=== PATIENT | female | born 1950 | race Caucasian/White ===

== ENCOUNTER 2016-08-28 14:17 | Inpatient (IN) | payer MEDICARE ==
[~2016-08-28] VITALS: Ht 167.6 cm; Wt 70.6 kg
[2016-08-28] MEDS ORDERED: DUONEB INH ONE (16:38)
[2016-08-28] MEDS ORDERED: METHYLPRED SOD SUCC 125 MG/2 ML VIAL ONE (16:59)
[2016-08-28] MEDS ORDERED: NEB-ALBUTEROL 2.5 MG/3 ML INH PRN (20:30)
[2016-08-28] MEDS ORDERED: LINZESS 145 MCG CAPSULE PO PRN (20:40)
[2016-08-28] MEDS ORDERED: clonazePAM 0.5 MG TAB PO PRN (20:40)
[2016-08-28] MEDS ORDERED: SALINE FLUSH 10 ML FLUSH PRN (20:45)
[2016-08-28 23:00] VITALS: BP_SYST 164; BP_SYST 175; RESP 18; TEMP 97.6; Ht 167.6 cm; Wt 70.6 kg
[2016-08-28] MEDS: DUONEB INH SCH ×2 (23:00→23:09)
[2016-08-28] MEDS: NEB-BROVANA 15 MCG/2 ML INH SCH (23:09)
[2016-08-28] MEDS: NEB-BUDESONIDE 0.5 MG INH SCH (23:10)
[2016-08-28 23:17] VITALS: RESP 20
[2016-08-29] VITALS (8 sets, daily range): BP systolic 100–130; RESP 17–20; TEMP 98–99.4
[2016-08-29] MEDS: LEVOFLOXACIN 750 MG/150 ML 150 ML IV SCH ×2 (00:27→09:11)
[2016-08-29] MEDS: SODIUM CHLORIDE 0.9% FLUSH BAG 500 ML IV SCH (00:27)
[2016-08-29] MEDS: DOCUSATE SOD 100 MG CAP PO SCH ×3 (00:28→20:17)
[2016-08-29] MEDS: ARTIF TEARS OP SOLN 0.4ML EYE LT SCH ×3 (00:28→20:17)
[2016-08-29] MEDS: KCL CR 20 MEQ TAB PO SCH ×3 (00:29→20:17)
[2016-08-29] MEDS: AMITRIPTYLINE 25 MG TAB PO SCH ×2 (00:29→20:17)
[2016-08-29] MEDS: PRAMIPEXOLE 0.5 MG TAB PO SCH ×2 (00:30→20:17)
[2016-08-29] MEDS: GUAIFENESIN ER 600 MG TABCR PO SCH ×3 (00:31→20:16)
[2016-08-29] MEDS: TOPIRAMATE 100 MG TAB PO SCH ×3 (00:32→20:17)
[2016-08-29] MEDS: PANTOPRAZOLE 40 MG TAB PO SCH ×3 (00:32→20:17)
[2016-08-29] MEDS: METHYLPRED SOD SUCC 40 MG VIAL IV SCH ×4 (00:33→23:20)
[2016-08-29] MEDS: clonazePAM 0.5 MG TAB PO PRN (00:56)
[2016-08-29] MEDS: NEB-BROVANA 15 MCG/2 ML INH SCH ×2 (06:44→19:29)
[2016-08-29] MEDS: DUONEB INH SCH ×5 (06:44→22:58)
[2016-08-29] MEDS: NEB-BUDESONIDE 0.5 MG INH SCH ×2 (06:44→19:29)
[2016-08-29] MEDS: LEVOTHYROXINE 0.175 MG TAB PO SCH (06:49)
[2016-08-29] MEDS ORDERED: Furosemide 40 MG TAB PO SCH (09:00)
[2016-08-29] MEDS: SALINE FLUSH 10 ML FLUSH SCH ×2 (09:07→20:18)
[2016-08-29] MEDS: METOPROLOL TART 25 MG TAB PO SCH (09:08)
[2016-08-29] MEDS: CHOLECALCIFEROL 1,000 UNITS TAB PO SCH (09:09)
[2016-08-30 03:01] VITALS: BP_SYST 128; RESP 16; TEMP 98.5
[2016-08-30] MEDS: SODIUM CHLORIDE 0.9% FLUSH BAG 500 ML IV SCH (05:57)
[2016-08-30] MEDS: LEVOTHYROXINE 0.175 MG TAB PO SCH (05:58)
[2016-08-30] MEDS: PANTOPRAZOLE 40 MG TAB PO SCH ×2 (05:58→20:10)
[2016-08-30 07:36] VITALS: BP_SYST 126; RESP 16; TEMP 98.4
[2016-08-30] MEDS: NEB-BROVANA 15 MCG/2 ML INH SCH ×2 (07:46→18:35)
[2016-08-30] MEDS: DUONEB INH SCH ×5 (07:47→22:50)
[2016-08-30] MEDS: NEB-BUDESONIDE 0.5 MG INH SCH ×2 (07:47→18:36)
[2016-08-30] MEDS ORDERED: SODIUM CHLORIDE 0.9% 1,000 ML IV SCH (08:10)
[2016-08-30] MEDS: METHYLPRED SOD SUCC 40 MG VIAL IV SCH ×3 (08:52→23:24)
[2016-08-30] MEDS: LEVOFLOXACIN 750 MG/150 ML 150 ML IV SCH (08:53)
[2016-08-30] MEDS: SALINE FLUSH 10 ML FLUSH SCH ×2 (08:53→20:08)
[2016-08-30] MEDS: ARTIF TEARS OP SOLN 0.4ML EYE LT SCH ×2 (08:53→20:09)
[2016-08-30] MEDS: DOCUSATE SOD 100 MG CAP PO SCH ×2 (08:54→20:10)
[2016-08-30] MEDS: METOPROLOL TART 25 MG TAB PO SCH (08:54)
[2016-08-30] MEDS: CHOLECALCIFEROL 1,000 UNITS TAB PO SCH (08:54)
[2016-08-30] MEDS: KCL CR 20 MEQ TAB PO SCH ×2 (08:54→20:10)
[2016-08-30] MEDS: TOPIRAMATE 100 MG TAB PO SCH ×2 (08:54→20:10)
[2016-08-30] MEDS: GUAIFENESIN ER 600 MG TABCR PO SCH ×2 (08:54→20:11)
[2016-08-30 11:19] VITALS: BP_SYST 124; RESP 16; TEMP 98.5
[2016-08-30 15:53] VITALS: BP_SYST 126; RESP 16; TEMP 98.5
[2016-08-30 19:19] VITALS: BP_SYST 133; RESP 16; TEMP 98.3
[2016-08-30] MEDS: AMITRIPTYLINE 25 MG TAB PO SCH (20:10)
[2016-08-30] MEDS: PRAMIPEXOLE 0.5 MG TAB PO SCH (20:10)
[2016-08-30] MEDS: clonazePAM 0.5 MG TAB PO PRN (20:16)
[2016-08-30] MEDS ORDERED: MISSING DOSE XX ONE (22:30)
[2016-08-30 22:38] VITALS: BP_SYST 134; RESP 20; TEMP 98.3
[2016-08-30] MEDS: TRAZODONE 50 MG TAB PO SCH (23:23)
[2016-08-31] VITALS (7 sets, daily range): BP systolic 121–144; RESP 18–19; TEMP 98–98.7
[2016-08-31] MEDS: NEB-BROVANA 15 MCG/2 ML INH SCH ×2 (05:13→17:57)
[2016-08-31] MEDS: NEB-BUDESONIDE 0.5 MG INH SCH ×2 (05:13→17:57)
[2016-08-31] MEDS: DUONEB INH SCH ×5 (05:13→23:05)
[2016-08-31] MEDS: SODIUM CHLORIDE 0.9% FLUSH BAG 500 ML IV SCH (05:52)
[2016-08-31] MEDS ORDERED: MISSING DOSE XX ONE ×2 (05:55→09:15)
[2016-08-31] MEDS: LEVOTHYROXINE 0.175 MG TAB PO SCH (07:08)
[2016-08-31] MEDS: SALINE FLUSH 10 ML FLUSH SCH ×2 (08:00→20:32)
[2016-08-31] MEDS: ARTIF TEARS OP SOLN 0.4ML EYE LT SCH ×2 (09:02→20:33)
[2016-08-31] MEDS: PANTOPRAZOLE 40 MG TAB PO SCH ×2 (09:03→20:37)
[2016-08-31] MEDS: METOPROLOL TART 25 MG TAB PO SCH (09:03)
[2016-08-31] MEDS: TOPIRAMATE 100 MG TAB PO SCH ×2 (09:03→20:37)
[2016-08-31] MEDS: CHOLECALCIFEROL 1,000 UNITS TAB PO SCH (09:03)
[2016-08-31] MEDS: KCL CR 20 MEQ TAB PO SCH ×2 (09:03→20:33)
[2016-08-31] MEDS: GUAIFENESIN ER 600 MG TABCR PO SCH ×2 (09:03→20:33)
[2016-08-31] MEDS: METHYLPRED SOD SUCC 40 MG VIAL IV SCH (09:03)
[2016-08-31] MEDS: LEVOFLOXACIN 750 MG/150 ML 150 ML IV SCH (09:06)
[2016-08-31] MEDS: DOCUSATE SOD 100 MG CAP PO SCH ×2 (11:05→20:33)
[2016-08-31] MEDS ORDERED: METHYLPRED SOD SUCC 40 MG VIAL IV SCH (16:00)
[2016-08-31] MEDS: AMITRIPTYLINE 25 MG TAB PO SCH (20:33)
[2016-08-31] MEDS: TRAZODONE 50 MG TAB PO SCH (20:33)
[2016-08-31] MEDS: PRAMIPEXOLE 0.5 MG TAB PO SCH (20:33)
[2016-08-31] MEDS: clonazePAM 0.5 MG TAB PO PRN (22:56)
[2016-09-01] VITALS (8 sets, daily range): BP systolic 96–137; RESP 10–18; TEMP 97.8–98.8
[2016-09-01] MEDS: NEB-BUDESONIDE 0.5 MG INH SCH ×2 (05:07→17:11)
[2016-09-01] MEDS: DUONEB INH SCH ×5 (05:07→23:10)
[2016-09-01] MEDS: NEB-BROVANA 15 MCG/2 ML INH SCH ×2 (05:07→17:11)
[2016-09-01] MEDS: LEVOTHYROXINE 0.175 MG TAB PO SCH (06:14)
[2016-09-01] MEDS: SODIUM CHLORIDE 0.9% FLUSH BAG 500 ML IV SCH (06:14)
[2016-09-01] MEDS: LEVOFLOXACIN 750 MG/150 ML 150 ML IV SCH (09:00)
[2016-09-01] MEDS ORDERED: PREDNISONE 20 MG TAB PO SCH (09:00)
[2016-09-01] MEDS: PANTOPRAZOLE 40 MG TAB PO SCH ×2 (09:25→20:24)
[2016-09-01] MEDS: CHOLECALCIFEROL 1,000 UNITS TAB PO SCH (09:25)
[2016-09-01] MEDS: METOPROLOL TART 25 MG TAB PO SCH (09:25)
[2016-09-01] MEDS: TOPIRAMATE 100 MG TAB PO SCH ×2 (09:25→20:24)
[2016-09-01] MEDS: GUAIFENESIN ER 600 MG TABCR PO SCH ×2 (09:25→20:24)
[2016-09-01] MEDS: DOCUSATE SOD 100 MG CAP PO SCH ×2 (09:26→20:24)
[2016-09-01] MEDS: SALINE FLUSH 10 ML FLUSH SCH ×2 (09:26→20:23)
[2016-09-01] MEDS: KCL CR 20 MEQ TAB PO SCH ×2 (09:26→20:24)
[2016-09-01] MEDS: ARTIF TEARS OP SOLN 0.4ML EYE LT SCH ×2 (09:26→20:23)
[2016-09-01] MEDS ORDERED: MISSING DOSE XX ONE (09:30)
[2016-09-01] MEDS: LEVOFLOXACIN 750 MG TAB PO SCH (09:36)
[2016-09-01] MEDS: AMITRIPTYLINE 25 MG TAB PO SCH (20:24)
[2016-09-01] MEDS: clonazePAM 0.5 MG TAB PO PRN (20:24)
[2016-09-01] MEDS: TRAZODONE 50 MG TAB PO SCH (20:24)
[2016-09-01] MEDS: PRAMIPEXOLE 0.5 MG TAB PO SCH (20:24)
[2016-09-02] VITALS (9 sets, daily range): BP systolic 106–133; RESP 14–20; TEMP 97.4–98.8
[2016-09-02] MEDS: SODIUM CHLORIDE 0.9% FLUSH BAG 500 ML IV SCH (05:47)
[2016-09-02] MEDS: NEB-BROVANA 15 MCG/2 ML INH SCH ×2 (06:08→19:47)
[2016-09-02] MEDS: NEB-BUDESONIDE 0.5 MG INH SCH ×2 (06:08→19:47)
[2016-09-02] MEDS: DUONEB INH SCH ×5 (06:08→23:02)
[2016-09-02] MEDS: LEVOTHYROXINE 0.175 MG TAB PO SCH (06:28)
[2016-09-02] MEDS: ARTIF TEARS OP SOLN 0.4ML EYE LT SCH ×2 (08:40→21:52)
[2016-09-02] MEDS: GUAIFENESIN ER 600 MG TABCR PO SCH ×2 (08:40→21:52)
[2016-09-02] MEDS: CHOLECALCIFEROL 1,000 UNITS TAB PO SCH (08:40)
[2016-09-02] MEDS: METOPROLOL TART 25 MG TAB PO SCH (08:40)
[2016-09-02] MEDS: PREDNISONE 20 MG TAB PO SCH (08:40)
[2016-09-02] MEDS: TOPIRAMATE 100 MG TAB PO SCH ×2 (08:40→21:52)
[2016-09-02] MEDS: DOCUSATE SOD 100 MG CAP PO SCH ×2 (08:40→21:53)
[2016-09-02] MEDS: KCL CR 20 MEQ TAB PO SCH ×2 (08:40→21:53)
[2016-09-02] MEDS: PANTOPRAZOLE 40 MG TAB PO SCH ×2 (08:40→21:52)
[2016-09-02] MEDS: LEVOFLOXACIN 750 MG TAB PO SCH (08:40)
[2016-09-02] MEDS: SALINE FLUSH 10 ML FLUSH SCH ×2 (08:41→21:53)
[2016-09-02] MEDS: PRAMIPEXOLE 0.5 MG TAB PO SCH (21:51)
[2016-09-02] MEDS: AMITRIPTYLINE 25 MG TAB PO SCH (21:52)
[2016-09-02] MEDS: TRAZODONE 50 MG TAB PO SCH (21:53)
[2016-09-02] MEDS: clonazePAM 0.5 MG TAB PO PRN (22:09)
[2016-09-03] MEDS: CYCLOBENZAPRINE 10 MG TAB PO PRN (00:26)
[2016-09-03 03:09] VITALS: BP_SYST 100; RESP 20; TEMP 97.7
[2016-09-03] MEDS: SODIUM CHLORIDE 0.9% FLUSH BAG 500 ML IV SCH (06:08)
[2016-09-03] MEDS: LEVOTHYROXINE 0.175 MG TAB PO SCH (06:09)
[2016-09-03 07:04] VITALS: BP_SYST 166; RESP 16; TEMP 97.1
[2016-09-03] MEDS: NEB-BUDESONIDE 0.5 MG INH SCH ×2 (07:51→20:05)
[2016-09-03] MEDS: DUONEB INH SCH ×5 (07:51→23:24)
[2016-09-03] MEDS: NEB-BROVANA 15 MCG/2 ML INH SCH ×2 (07:51→20:05)
[2016-09-03] MEDS: SALINE FLUSH 10 ML FLUSH SCH ×2 (09:42→20:21)
[2016-09-03] MEDS: TOPIRAMATE 100 MG TAB PO SCH ×2 (09:43→22:45)
[2016-09-03] MEDS: GUAIFENESIN ER 600 MG TABCR PO SCH ×2 (09:43→22:47)
[2016-09-03] MEDS: LEVOFLOXACIN 750 MG TAB PO SCH (09:44)
[2016-09-03] MEDS: ARTIF TEARS OP SOLN 0.4ML EYE LT SCH ×2 (09:44→22:45)
[2016-09-03] MEDS: PANTOPRAZOLE 40 MG TAB PO SCH ×2 (09:44→22:46)
[2016-09-03] MEDS: KCL CR 20 MEQ TAB PO SCH ×2 (09:44→22:46)
[2016-09-03] MEDS: METOPROLOL TART 25 MG TAB PO SCH (09:44)
[2016-09-03] MEDS: DOCUSATE SOD 100 MG CAP PO SCH ×2 (09:44→22:46)
[2016-09-03] MEDS: CHOLECALCIFEROL 1,000 UNITS TAB PO SCH (09:44)
[2016-09-03] MEDS ORDERED: MISSING DOSE XX ONE ×2 (10:00)
[2016-09-03 11:27] VITALS: BP_SYST 124; RESP 16; TEMP 98.2
[2016-09-03] MEDS: PREDNISONE 20 MG TAB PO SCH (12:24)
[2016-09-03 15:48] VITALS: BP_SYST 140; RESP 16; TEMP 98.9
[2016-09-03] MEDS ORDERED: ARTIF TEARS OP SOLN 0.4ML EYE LT PRN (17:40)
[2016-09-03 19:48] VITALS: BP_SYST 151; RESP 20; TEMP 99.7
[2016-09-03] MEDS ORDERED: ZOLPIDEM 5 MG TAB PO SCH (21:00)
[2016-09-03] MEDS ORDERED: TRAZODONE 50 MG TAB PO SCH (21:00)
[2016-09-03] MEDS: AMITRIPTYLINE 25 MG TAB PO SCH (22:46)
[2016-09-03] MEDS: PRAMIPEXOLE 0.5 MG TAB PO SCH (22:46)
[2016-09-04] VITALS (8 sets, daily range): BP systolic 117–169; RESP 18–22; TEMP 97.6–99
[2016-09-04] MEDS: clonazePAM 0.5 MG TAB PO PRN ×2 (03:36→23:31)
[2016-09-04] MEDS: SODIUM CHLORIDE 0.9% FLUSH BAG 500 ML IV SCH (06:00)
[2016-09-04] MEDS: LEVOTHYROXINE 0.175 MG TAB PO SCH (06:38)
[2016-09-04] MEDS: NEB-BROVANA 15 MCG/2 ML INH SCH ×2 (07:58→20:12)
[2016-09-04] MEDS: DUONEB INH SCH ×5 (07:58→22:55)
[2016-09-04] MEDS: NEB-BUDESONIDE 0.5 MG INH SCH ×2 (07:58→20:12)
[2016-09-04] MEDS: SALINE FLUSH 10 ML FLUSH SCH ×2 (10:01→20:40)
[2016-09-04] MEDS: ARTIF TEARS OP SOLN 0.4ML EYE LT SCH ×2 (10:01→20:39)
[2016-09-04] MEDS: DOCUSATE SOD 100 MG CAP PO SCH ×2 (10:02→20:37)
[2016-09-04] MEDS: METOPROLOL TART 25 MG TAB PO SCH (10:02)
[2016-09-04] MEDS: GUAIFENESIN ER 600 MG TABCR PO SCH ×2 (10:02→20:41)
[2016-09-04] MEDS: CHOLECALCIFEROL 1,000 UNITS TAB PO SCH (10:02)
[2016-09-04] MEDS: TOPIRAMATE 100 MG TAB PO SCH ×2 (10:02→20:37)
[2016-09-04] MEDS: PREDNISONE 20 MG TAB PO SCH (10:03)
[2016-09-04] MEDS: LEVOFLOXACIN 750 MG TAB PO SCH (10:03)
[2016-09-04] MEDS: KCL CR 20 MEQ TAB PO SCH ×2 (10:03→20:39)
[2016-09-04] MEDS: PANTOPRAZOLE 40 MG TAB PO SCH ×2 (10:04→20:38)
[2016-09-04] MEDS: PRAMIPEXOLE 0.5 MG TAB PO SCH (20:38)
[2016-09-04] MEDS: NYSTATIN 500,000 UNITS/5 ML SUSP SWISH.SWAL SCH (20:38)
[2016-09-04] MEDS: AMITRIPTYLINE 25 MG TAB PO SCH (20:40)
[2016-09-04] MEDS ORDERED: TRAZODONE 100 MG TAB PO SCH (21:00)
[2016-09-04] MEDS ORDERED: MISSING DOSE XX ONE (23:10)
[2016-09-04] MEDS: CYCLOBENZAPRINE 10 MG TAB PO PRN (23:31)
[2016-09-05 00:10] VITALS: RESP 14
[2016-09-05 03:43] VITALS: BP_SYST 157; RESP 16; TEMP 97.5
[2016-09-05] MEDS: SODIUM CHLORIDE 0.9% FLUSH BAG 500 ML IV SCH (06:00)
[2016-09-05] MEDS: LEVOTHYROXINE 0.175 MG TAB PO SCH (06:29)
[2016-09-05] MEDS ORDERED: MISSING DOSE XX ONE (07:40)
[2016-09-05 07:55] VITALS: BP_SYST 182; RESP 20; TEMP 97.9
[2016-09-05] MEDS: DUONEB INH SCH ×3 (08:08→14:48)
[2016-09-05] MEDS: NEB-BUDESONIDE 0.5 MG INH SCH (08:08)
[2016-09-05] MEDS: NEB-BROVANA 15 MCG/2 ML INH SCH (08:08)
[2016-09-05] MEDS: GUAIFENESIN ER 600 MG TABCR PO SCH (08:36)
[2016-09-05] MEDS: PANTOPRAZOLE 40 MG TAB PO SCH (08:36)
[2016-09-05] MEDS: TOPIRAMATE 100 MG TAB PO SCH (08:36)
[2016-09-05] MEDS: LEVOFLOXACIN 750 MG TAB PO SCH (08:37)
[2016-09-05] MEDS: DOCUSATE SOD 100 MG CAP PO SCH (08:37)
[2016-09-05] MEDS: CHOLECALCIFEROL 1,000 UNITS TAB PO SCH (08:37)
[2016-09-05] MEDS: METOPROLOL TART 25 MG TAB PO SCH (08:37)
[2016-09-05] MEDS: KCL CR 20 MEQ TAB PO SCH (08:37)
[2016-09-05] MEDS: PREDNISONE 20 MG TAB PO SCH (08:38)
[2016-09-05] MEDS: NYSTATIN 500,000 UNITS/5 ML SUSP SWISH.SWAL SCH ×3 (08:39→17:51)
[2016-09-05] MEDS: ARTIF TEARS OP SOLN 0.4ML EYE LT SCH (08:39)
[2016-09-05] MEDS: SALINE FLUSH 10 ML FLUSH SCH (08:39)
[2016-09-05 12:23] VITALS: BP_SYST 113; RESP 18; TEMP 97.4
[2016-09-05 15:41] VITALS: BP_SYST 104; RESP 18; TEMP 98.2
[2016-09-05 17:39] VITALS: BP_SYST 104; RESP 18; TEMP 98.2
== END 2016-09-05 18:29 | disposition home or self-care (01) | DRG 189 ==
LOC: ENRESERV → ENRESERVDT → ENRESERVTM → ER 14:17 → ENPENDDIS 20:29 → EMR 20:29 → PCU2 22:39 → 4NT 09-02 15:23
PROVIDERS: ADMIT Internal Medicine; ATTEND Internal Medicine
DX: J96.21 Acute and chronic respiratory failure with hypoxia (principal); I42.9 Cardiomyopathy, unspecified; E87.1 Hypo-osmolality and hyponatremia; J98.11 Atelectasis; J44.1 Chronic obstructive pulmonary disease with (acute) exacerbation; J96.22 Acute and chronic respiratory failure with hypercapnia; G47.33 Obstructive sleep apnea (adult) (pediatric); I10 Essential (primary) hypertension; S00.12XA Contusion of left eyelid and periocular area, initial encounter; Z72.0 Tobacco use; M54.9 Dorsalgia, unspecified; G47.00 Insomnia, unspecified; K59.00 Constipation, unspecified; K21.9 Gastro-esophageal reflux disease without esophagitis; E78.5 Hyperlipidemia, unspecified; Z85.72 Personal history of non-Hodgkin lymphomas; E03.9 Hypothyroidism, unspecified; Z79.51 Long term (current) use of inhaled steroids; Z82.5 Family history of asthma and other chronic lower respiratory diseases; Z82.49 Family history of ischemic heart disease and other diseases of the circulatory system
CPT/HCPCS: 36415; 36600; 70450; 71020; 71250; 80048; 80053; 82803; 85025; 87071; 87278; 87299; 87804; 94640; 94660; 94762; 94799; 96374; 99221; 99223; 99232; 99233